=== PATIENT | male | born 1985 | race Caucasian/White ===

== ENCOUNTER 2017-09-26 16:33 | Emergency (ER) | payer OTHER ==
[~2017-09-26] VITALS: Ht 175.3 cm; Wt 75.0 kg
[2017-09-26 17:31] VITALS: BP 137/93; PULSE 73; RESP 20; TEMP 97.6; O2SAT 98
--- NOTE | 2017-09-26 18:17 | PD ---
HPI Chief Complaint: Psychiatric Symptoms Time Seen by Provider: 17:26 Travel History International Travel<30 days: No Contact w/Intl Traveler<30days: No History of Present Illness HPI 31-year-old male presents to the emergency Department a Villareal act by local police for suicidal ideation. According the Villareal act, the patient has been on a drug binge. He takes his that he was going to end it. The patient states that he has been snorting cocaine for the past 4 days. He states he has relapsed. He does not remember making any suicidal comments. He denies any current suicidal or homicidal ideation. He states he has a 6-month-old son and would never kill himself. The patient denies any medical complaints at this time. Moderate severity. [facility] Social History Alcohol Use: No Tobacco Use: Yes Substance Use: Yes Review of Systems Except as stated in HPI: all other systems reviewed are Neg Physical Exam Narrative GENERAL: Well-nourished, well-developed male patient, afebrile. SKIN: Focused skin assessment warm/dry. HEAD: Normocephalic. Atraumatic. EYES: No scleral icterus. No injection or drainage. NECK: Supple, trachea midline. No JVD or lymphadenopathy. CARDIOVASCULAR: Regular rate and rhythm without murmurs, gallops, or rubs. RESPIRATORY: Breath sounds equal bilaterally. No accessory muscle use. Lungs sounds are clear to auscultation. GASTROINTESTINAL: Abdomen soft, non-tender, nondistended. MUSCULOSKELETAL: No cyanosis, or edema. PSYCHIATRIC: No delusional thought processes. No hallucinations. Data Data Last Documented VS Vital Signs Date Time Temp Pulse Resp B/P (MAP) Pulse Ox O2 Delivery O2 Flow Rate FiO2 09/26/17 17:31 97.6 73 20 137/93 (108) 98 Orders Orders Psych Screen (09/26/17 16:48) Complete Blood Count With Diff (09/26/17 17:25) Comprehensive Metabolic Panel (09/26/17 17:25) Thyroid Stimulating Hormone (09/26/17 17:25) Drug Screen, Random Urine (09/26/17 17:25) Alcohol (Ethanol) (09/26/17 17:25) Salicylates (Aspirin) (09/26/17 17:25) Tylenol (Acetaminophen) (09/26/17 17:25) MDM Medical Decision Making Medical Screen Exam Complete: Yes Emergency Medical Condition: Yes Medical Record Reviewed: Yes Differential Diagnosis Substance abuse versus anxiety versus depression Narrative Course 31-year-old male presents to the emergency Department a Villareal act by local police. CBC, CMP, TSH, UDS, alcohol level, salicylate level, Tylenol level are ordered and pending. Upon no acute abnormalities and lab work, the patient will be medically cleared for psychiatric screening and disposition. Mental health screening discussed with the patient. Psychiatric screen ordered. Diagnosis Primary Impression: Cocaine abuse Condition: Stable Cailin Raymond Sep 26, 2017 18:17
[2017-09-26 20:10] LABS: AUTOMATED NEUTROPHIL # 3.6 TH/MM3 (1.8-7.7); BASOPHIL % 0.8 % (0.0-2.0); EOSINOPHIL % 0.3 % (0.0-4.0); HEMOGLOBIN 13.2 GM/DL (13.0-17.0); LYMPHOCYTE # 1.6 TH/MM3 (1.0-4.8); MEAN CELL VOLUME 84.7 FL (80.0-100.0); MEAN CORPUSCULAR HEMOGLOBIN 29.4 PG (27.0-34.0); MEAN CORPUSCULAR HGB CONC 34.7 % (32.0-36.0); MEAN PLATELET VOLUME 7.3 FL (7.0-11.0); MONO % 12.3 % (0.0-8.0); MONOCYTE # 0.7 TH/MM3 (0-0.9); NEUT % 59.6 % (16.0-70.0); PLATELET COUNT 467 TH/MM3 (150-450); RED BLOOD COUNT 4.48 MIL/MM3 (4.50-5.90); WHITE BLOOD COUNT 6.1 TH/MM3 (4.0-11.0)
[2017-09-26 20:38] LABS: AST (GOT) 13 U/L (15-37); BICARBONATE 31.9 MEQ/L (21.0-32.0); BLOOD UREA NITROGEN 9 MG/DL (7-18); CALCIUM 9.3 MG/DL (8.5-10.1); CHLORIDE 100 MEQ/L (98-107); CREATININE 0.94 MG/DL (0.60-1.30); GLOMERULAR FILTRATION RATE 92 ML/MIN (>89); GLUCOSE,RANDOM 101 MG/DL (74-106); SODIUM (NA) 137 MEQ/L (136-145)
[2017-09-26 21:02] LABS: ALKALINE PHOSPHATASE 62 U/L (45-117); ALT (GPT) 21 U/L (12-78); TOTAL BILIRUBIN ADULT 0.5 MG/DL (0.2-1.0)
[2017-09-26 21:05] LABS: ACETAMINOPHEN LESS THAN 2.0 MCG/ML (10.0-30.0)
[2017-09-27 02:24] VITALS: BP 136/72; PULSE 52; RESP 18; TEMP 98.2; O2SAT 99
--- NOTE | 2017-09-27 13:47 | PD ---
History of Present Illness Chief Complaint: Psychiatric Symptoms Time Seen by Provider: 13:30 Travel History International Travel<30 Days: No Contact w/Intl Traveler<30days: No Known affected area: No Legal Status Legal Status: Villareal Act Villareal Act Signed By: Garrett Srinivasan History of Present Illness: History of Present Illness HPI 31-year-old male with history of substance abuse who presents to the emergency Department under a Villareal act by local police after the patient's girlfriend called them . The Villareal act report alleges that the patient has been on a drug binge and that he sent text messages to his indicating that he was going to end it all. The patient reports that he is been clean for the past 2 years and has been on Suboxone for the past 1-1/2 years. During the past several weeks he has been trying to decrease his dosage of the Suboxone on his own and relapsed. He reports he has been snorting cocaine for the past 4 days and has not slept. He alleges that he did not want to go home and have his girlfriend and his son see him high so he was staying away from the house. He states that he does not remember saying that he wanted to even though the police did show him the text messages. Electronic medical record is reviewed. No previous contact with [facility] psychiatry. His toxicology is positive for benzos, cannabinoids , and cocaine. Patient was monitored in secure environment and he presented no behavioral concerns and no suicidality. He is alert, oriented, dressed in [facility] and maintaining basic hygiene. His speech is clear and logical. There is no psychosis, no fanny, no hypomania. No objective clinical signs of depression or anxiety. The patient denies any suicidal or homicidal ideation, intent or plan. The patient is future oriented and states that he wants to get back home and to continue to work on his recovery. He has a sponsor and attends meetings. The patient also states that he has a 6-month-old child and that he would never hurt himself because he has this child to live for. . PFSH Past Medical History Depression: Yes Diminished Hearing: No Past Surgical History Appendectomy: Yes Psychiatric History Psychiatric History Hx Psychiatric Treatment: Currently sees a therapist with his . No history of inpatient psychiatric treatment History of Inpatient Treatment: No Guns or firearms in home: No Social History Born in [place]. Has been in [place] for 2 years. Lives with his girlfriend. Has a 6-month-old child. 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 Hx Alcohol Use: No Hx Tobacco Use: Yes Hx Substance Use: Yes Substance Use Type: Cocaine Hx of Substance Use Treatment: Yes Family Psychiatric History Negative Allergies-Medications (Allergen,Severity, Reaction): Coded Allergies: amoxicillin (Verified Allergy, Unknown, 09/26/17) ketorolac (Verified Allergy, Unknown, 09/26/17) Review of Systems Psychiatric: DENIES: Anxiety, Confusion, Mood changes, Depression, Hallucinations, Agitation, Suicidal Ideation, Homicidal Ideation, Delusions Except as stated in HPI: all other systems reviewed are Neg Mental Status Examination Appearance: Appropriate Consciousness: Alert Orientation: x4 Motor Activity: Normal gait Speech: Unremarkable Language: Adequate Fund of Knowledge: Adequate Attention and Concentration: Adequate Memory: Unremarkable Mood: Appropriate Affect: Appropriate Thought Process & Associations: Intact, Logical, Goal directed Thought Content: Appropriate Hallucination Type: None Delusion Type: None Suicidal Ideation: No Suicidal Plan: No Suicidal Intention: No Homicidal Ideation: No Homicidal Plan: No Homicidal Intention: No Insight: Adequate Judgment: Adequate [facility] Medical Decision Making Medical Record Reviewed: Yes Assessment/Plan 31-year-old male with no history of psychiatric illness and history of substance use who while in context of cocaine intoxication sent text messages to his girlfriend indicated that he wanted to . The patient made no attempt at harming himself. The patient has no previous suicide attempts. He denies any suicidal or homicidal ideation and indicates that he doesn't remember what he may or may not have said. He is future oriented with adequate protective factors in place. He has been in communication with his mother who is supportive. He is requesting discharge . No evidence of unstable mental illness as defined under the Villareal act. He is cognitively intact. He does not meet criteria for Villareal act at this time and it will be lifted. He is to follow -up with as well as his sponsor. Psychiatrically clear for discharge. Orders Orders Psych Screen (09/26/17 16:48) Complete Blood Count With Diff (09/26/17 17:25) Comprehensive Metabolic Panel (09/26/17 17:25) Thyroid Stimulating Hormone (09/26/17 17:25) Drug Screen, Random Urine (09/26/17 17:25) Alcohol (Ethanol) (09/26/17 17:25) Salicylates (Aspirin) (09/26/17 17:25) Tylenol (Acetaminophen) (09/26/17 17:25) Diet Regular Basic (09/27/17 Breakfast) Diet Regular Basic (09/27/17 Dinner) Diet Regular Basic (09/27/17 Lunch) Results Vital Signs Date Time Temp Pulse Resp B/P (MAP) Pulse Ox O2 Delivery O2 Flow Rate FiO2 09/27/17 02:24 98.2 52 18 136/72 (93) 99 Room Air 09/26/17 17:31 97.6 73 20 137/93 (108) 98 Laboratory Tests Test 09/26/17 19:25 White Blood Count 6.1 Red Blood Count 4.48 Hemoglobin 13.2 Hematocrit 38.0 Mean Corpuscular Volume 84.7 Mean Corpuscular Hemoglobin 29.4 Mean Corpuscular Hemoglobin Concent 34.7 Red Cell Distribution Width 13.0 Platelet Count 467 Mean Platelet Volume 7.3 Neutrophils (%) (Auto) 59.6 Lymphocytes (%) (Auto) 27.0 Monocytes (%) (Auto) 12.3 Eosinophils (%) (Auto) 0.3 Basophils (%) (Auto) 0.8 Neutrophils # (Auto) 3.6 Lymphocytes # (Auto) 1.6 Monocytes # (Auto) 0.7 Eosinophils # (Auto) 0.0 Basophils # (Auto) 0.0 CBC Comment DIFF FINAL Differential Comment Blood Urea Nitrogen 9 Creatinine 0.94 Random Glucose 101 Total Protein 8.0 Albumin 4.0 Calcium Level 9.3 Alkaline Phosphatase 62 Aspartate Amino Transf (AST/SGOT) 13 Alanine Aminotransferase (ALT/SGPT) 21 Total Bilirubin 0.5 Sodium Level 137 Potassium Level 3.5 Chloride Level 100 Carbon Dioxide Level 31.9 Anion Gap 5 Estimat Glomerular Filtration Rate 92 Thyroid Stimulating Hormone 3rd Gen 0.794 Salicylates Level LESS THAN 1.7 Urine Opiates Screen NEG Acetaminophen Level LESS THAN 2.0 Urine Barbiturates Screen NEG Urine Amphetamines Screen NEG Urine Benzodiazepines Screen POS Urine Cocaine Screen POS Urine Cannabinoids Screen POS Ethyl Alcohol Level LESS THAN 3 Diagnosis Primary Impression: Cocaine abuse Psychiatrically Cleared: Yes Med/ Other Pt Specific Info: No Meds Exist/No RX given Disposition: 01 DISCHARGE HOME Condition: Romana Ware Sep 27, 2017 13:47
== END 2017-09-27 15:20 | disposition home or self-care (01) ==
LOC: NEPJ 16:33
DX: F14.10 Cocaine abuse, uncomplicated (principal); F32.9 Major depressive disorder, single episode, unspecified; Z72.0 Tobacco use
CPT/HCPCS: 80053; 80307; 84443; 85025; 99283